=== PATIENT | male | born 1985 | race Caucasian/White ===

== ENCOUNTER 2017-05-02 08:20 | Emergency (ER) | payer SELFPAY ==
[~2017-05-02] VITALS: Ht 177.8 cm; Wt 81.8 kg
[~2017-05-02 08:20] MED LIST: AMOXICILLIN 50500 MG PO; FLEXERIL 1010 MG/TAB PO; NAPROSYN500 MG PO; NORCO 325 MG-51 TAB PO
[2017-05-02 08:24] VITALS: BP 117/74; PULSE 67; TEMP 98.4
[2017-05-02] MEDS ORDERED: PREDNISONE20 MG PO (08:29)
== END 2017-05-02 10:15 | disposition home or self-care (01) ==
LOC: COL.ER 08:20
DX: J40 Bronchitis, not specified as acute or chronic (principal)